=== PATIENT | female | born 1960 ===

== ENCOUNTER 2024-03-08 03:15 | Emergency (ER) | payer OTHER ==
--- OUTSIDE RECORDS SUMMARY | 2024-03-08 03:19 | XMS REPORT | Continuity of Care Document ---
Author Name Unknown Address [address] [facility] [address] [place] [address] [facility] thconnect Address [address] [facility] [address] [place] [address] Care Team Providers Care Show Host Name Role Phone Jani Chavira MD Primary Care Physician [phone] Joann Guevara Attending Clinician Unavailable Stoddard, Na L Attending Clinician Unavailable Stoddard, Na Ly Attending Clinician Unavailable Jani Chavira MD Attending Clinician [phone] ZAY LEARY Attending Clinician Unavailable MANDY CHAVEZ Attending Clinician Unavailable Zay Leary MD Attending Clinician [phone] Pc, [facility] Vascular Room 1 - Attending Clinician Un available Pc, Adc Echo Room 1 - Attending Clinician Unavai lable Pob, Adc Lab Main Attending Clinician Unavailabl e Doctor Unassigned, [place] Attending Clinician U JANI Trotter Attending Clinician Unavailable Rayo Varela MD Attending Clinician [phone] Lab, Adc Fam Pob I Attending Clinician Unavailab Rebekah England A Attending Clinician [phone] REBEKAH DOUGLASS Attending Clinician Unavailable Pob1, [facility] Attending Clinician UnaMariel Robertsone A Attending Clinician [phone] ANGELICA UNDERWOOD Attending Clinician Unavailable Vikki Page Attending Clinician [phone] VIKKI BOWENS Attending Clinician Unavailable Jasmin Stoddard Admitting Clinician Unavailable JANI CHAVIRA Admitting Clinician Unavailable Payers Payer Name Policy Type Policy Number Effective Date Expirati on Date Source AETNA CHOICE POS II [id number] 2018 00:00:00 AETNA 53 [id number] 2002 00:00:00 [facility] AETNA C1 [id number] 2021 00:00:00 [facility] Problems Condition Name Condition Details Condition Category Status Onset Date Resolution Date Last Treatment Date Treating Clinician Comments Source Back pain Back pain Disease Active 2014-10 00:00: 00 [facility] Cough Cough Disease Active 2014-10 00:00: 00 [facility] Epilepsy Epilepsy Disease Active 2014-10 00:00: 00 [facility] [id number] Seasonal allergies Problem [facility] [id number] Constipati on, unspecifie d constipati on type Problem [facility] [id number] Seizure disorder Problem [facility] [id number] Mild intermitte nt asthma without complicati on Problem [facility] Allergies, Adverse Reactions, Alerts Allergy Name Allergy Type Status Severity Reaction(s) Onset Date Inactive Date Treating Clinician Comments Source Meperidi ne Hcl Propensi ty to adverse reaction s Active Other - See comments 02-04 00:00: 00 Seizure like activity [facility] Morphine Propensi ty to adverse reaction s Active Other - See comments 02-04 00:00: 00 Seizure like activity [facility] MEPERIDI NE HCL DRUG INGREDI Active Other-Cmnt 02-04 00:00: 00 [facility] MORPHINE DRUG INGREDI Active Other-Cmnt 02-04 00:00: 00 [facility] Amoxicil luis alberto-Pot Clavulan ate Propensi ty to adverse reaction s Active Diarrhea 2016-10 00:00: 00 [facility] AMOXICIL LUIS ALBERTO-POT CLAVULAN ATE DRUG Active Diarrhea 2016-10 00:00: 00 [facility] Fluconaz ole Propensi ty to adverse reaction s Active Unknown - See comments 12-09 00:00: 00 [facility] FLUCONAZ OLE DRUG INGREDI Active Unknown-Cmnt 12-09 00:00: 00 [facility] amoxicil luis alberto / clavulan ate amoxicil luis alberto / clavulan ate Active Stomach [facility] morphine morphine Active Seizure Commo n [facility] fluconaz ole fluconaz ole Active Hives [facility] Social History Social Habit Start Date Stop Date Quantity Comments Source History SDOH Alcohol Frequency [facility] History SDOH [facility] History SDOH Alcohol Binge [facility] Use [facility] Sex Assigned At [facility] Exposure to SARS-CoV-2 (event) 2020-10-03 00:00:00 2020-11-02 13:57:00 Not sure [facility] Alcohol intake 2020-10-29 00:00:00 2020-10-29 00:00:00 Current drinker of alcohol (finding) [facility] History of Social function 2020-09-20 00:00:00 2020-09-20 00:00:00 [facility] Alcohol Comment 2015-08-15 00:00:00 2015-08-15 00:00:00 rarely [facility] Tobacco use and exposure 2015-08-15 00:00:00 2015-08-15 00:00:00 Smokeless tobacco non-user [facility] Smoking Status Start Date Stop Date Source Never Smoker [facility] Medications Ordered Medication Name Filled Medication Name Start Date Stop Date Current Medication? Ordering Clinician Indication Dosage Frequency Signature (SIG) Comments Components Source Azithromyci n 250 MG Azithromyci n 250 MG 4- 00:00: 00 No QD Azithromyc in 250 MG Azithromyci n 250 MG Azithromyci n 250 MG 2023-0 4- 00:00: 00 No QD Azithromyc in 250 MG Azithromyci n 250 MG Azithromyci n 250 MG 2023-0 4- 00:00: 00 No QD Azithromyc in 250 MG clonazePAM 0.5 MG clonazePAM 0.5 MG 2021-1 2-20 00:00: 00 No BID clonazePAM 0.5 MG clonazePAM 0.5 MG clonazePAM 0.5 MG 2021-1 2-20 00:00: 00 No BID clonazePAM 0.5 MG clonazePAM 0.5 MG clonazePAM 0.5 MG 2021-1 2-20 00:00: 00 No BID clonazePAM 0.5 MG clonazePAM 0.5 MG clonazePAM 0.5 MG 2-1 2-20 00:00: 00 No BID clonazePAM 0.5 MG clonazePAM 0.5 MG clonazePAM 0.5 MG 2-1 2-20 00:00: 00 No BID clonazePAM 0.5 MG clonazePAM 0.5 MG clonazePAM 0.5 MG 2-1 2-20 00:00: 00 No BID clonazePAM 0.5 MG clonazePAM 0.5 MG clonazePAM 0.5 MG 2-1 0-18 00:00: 00 No 1{table t_at_be dtime} BID clonazePAM 0.5 MG clonazePAM 0.5 MG clonazePAM 0.5 MG 2-1 0-18 00:00: 00 No 1{table t_at_be dtime} BID clonazePAM 0.5 MG Azelastine HCl 137 MCG/SPRAY Azelastine HCl 137 MCG/SPRAY 2022-0 06-12 00:00: 00 No 2{spray s_in_ea ch_nost ril} QD Azelastine HCl 137 MCG/SPRAY Azelastine HCl 137 MCG/SPRAY Azelastine HCl 137 MCG/SPRAY 2022-0 9-08 00:00: 00 No 2{spray s_in_ea ch_nost ril} QD Azelastine HCl 137 MCG/SPRAY Azelastine HCl 137 MCG/SPRAY Azelastine HCl 137 MCG/SPRAY 2022-0 06-12 00:00: 00 No 2{spray s_in_ea ch_nost ril} QD Azelastine HCl 137 MCG/SPRAY Azelastine HCl 137 MCG/SPRAY Azelastine HCl 137 MCG/SPRAY 2-0 06-12 00:00: 00 No 2{spray s_in_ea ch_nost ril} QD Azelastine HCl 137 MCG/SPRAY Azelastine HCl 137 MCG/SPRAY Azelastine HCl 137 MCG/SPRAY 2-0 06-12 00:00: 00 No 2{spray s_in_ea ch_nost ril} QD Azelastine HCl 137 MCG/SPRAY Azelastine HCl 137 MCG/SPRAY Azelastine HCl 137 MCG/SPRAY 2-0 06-12 00:00: 00 No 2{spray s_in_ea ch_nost ril} QD Azelastine HCl 137 MCG/SPRAY Azelastine HCl 137 MCG/SPRAY Azelastine HCl 137 MCG/SPRAY 2-0 06-12 00:00: 00 No 2{spray s_in_ea ch_nost ril} QD Azelastine HCl 137 MCG/SPRAY Azelastine HCl 137 MCG/SPRAY Azelastine HCl 137 MCG/SPRAY 2-0 06-12 00:00: 00 No 2{spray s_in_ea ch_nost ril} QD Azelastine HCl 137 MCG/SPRAY Azelastine HCl 137 MCG/SPRAY Azelastine HCl 137 MCG/SPRAY 2-0 06-12 00:00: 00 No 2{spray s_in_ea ch_nost ril} QD Azelastine HCl 137 MCG/SPRAY Azelastine HCl 137 MCG/SPRAY Azelastine HCl 137 MCG/SPRAY 2-0 06-12 00:00: 00 No 2{spray s_in_ea ch_nost ril} QD Azelastine HCl 137 MCG/SPRAY Azelastine HCl 137 MCG/SPRAY Azelastine HCl 137 MCG/SPRAY 2-0 06-12 00:00: 00 No 2{spray s_in_ea ch_nost ril} QD Azelastine HCl 137 MCG/SPRAY Benzonatate 200 MG Benzonatate 200 MG 2-0 06-12 00:00: 00 06-22 00:00 :00 No 1{capsu le} TID Benzonatat e 200 MG guaiFENesin -Codeine 100-10 MG/5ML guaiFENesin -Codeine 100-10 MG/5ML 2021-0 06-12 00:00: 00 06-19 00:00 :00 No QID guaiFENesi n-Codeine 100-10 MG/5ML methylPREDN ISolone 4 MG methylPREDN ISolone 4 MG 2021-0 06-11 00:00: 00 06-17 00:00 :00 No QD methylPRED NISolone 4 MG dilTIAZem HCl 60 MG dilTIAZem HCl 60 MG 2021-0 04-28 00:00: 00 No QD dilTIAZem HCl 60 MG dilTIAZem HCl 60 MG dilTIAZem HCl 60 MG 2021-0 04-28 00:00: 00 No QD dilTIAZem HCl 60 MG clonazePAM 0.5 MG clonazePAM 0.5 MG 2021-0 04-23 00:00: 00 No 1{table t_at_be dtime} BID clonazePAM 0.5 MG clonazePAM 0.5 MG clonazePAM 0.5 MG 2-0 04-23 00:00: 00 No 1{table t_at_be dtime} BID clonazePAM 0.5 MG clonazePAM 0.5 MG clonazePAM 0.5 MG 2021-0 04-23 00:00: 00 No 1{table t_at_be dtime} BID clonazePAM 0.5 MG clonazePAM 0.5 MG clonazePAM 0.5 MG 2-0 03-05 00:00: 00 No clonazePAM 0.5 MG clonazePAM 0.5 MG clonazePAM 0.5 MG 2-0 03-05 00:00: 00 No clonazePAM 0.5 MG clonazePAM 0.5 MG clonazePAM 0.5 MG 2-0 03-05 00:00: 00 No clonazePAM 0.5 MG clonazePAM 0.5 MG clonazePAM 0.5 MG 2-0 6 00:00: 00 No clonazePAM 0.5 MG clonazePAM 0.5 MG clonazePAM 0.5 MG 2-0 03-05 00:00: 00 No clonazePAM 0.5 MG Lactulose 10 GM/15ML Lactulose 10 GM/15ML 2022-0 3-04 00:00: 00 - 00:00 :00 No 15{ml} Lactulose 10 GM/15ML Amitiza 8 MCG Amitiza 8 MCG 2022-0 3- 00:00: 00 03-04 00:00 :00 No BID Amitiza 8 MCG Amitiza 8 MCG Amitiza 8 MCG 2022-0 3- 00:00: 00 03-04 00:00 :00 No BID Amitiza 8 MCG Fish Oil 500 MG Fish Oil 500 MG 2022-0 1-03 00:00: 00 No 1{capsu le} BID Fish Oil 500 MG Fish Oil 500 MG Fish Oil 500 MG 2022-0 1-03 00:00: 00 No 1{capsu le} BID Fish Oil 500 MG Fish Oil 500 MG Fish Oil 500 MG 2022-0 1-03 00:00: 00 No 1{capsu le} BID Fish Oil 500 MG Fish Oil 500 MG Fish Oil 500 MG 2022-0 1-03 00:00: 00 No 1{capsu le} BID Fish Oil 500 MG Fish Oil 500 MG Fish Oil 500 MG 2022-0 1-03 00:00: 00 No 1{capsu le} BID Fish Oil 500 MG Fish Oil 500 MG Fish Oil 500 MG 2022-0 1-03 00:00: 00 No 1{capsu le} BID Fish Oil 500 MG Fish Oil 500 MG Fish Oil 500 MG 2022-0 1-03 00:00: 00 No 1{capsu le} BID Fish Oil 500 MG Fish Oil 500 MG Fish Oil 500 MG 2022-0 1-03 00:00: 00 No 1{capsu le} BID Fish Oil 500 MG Fish Oil 500 MG Fish Oil 500 MG 2022-0 1-03 00:00: 00 No 1{capsu le} BID Fish Oil 500 MG Fish Oil 500 MG Fish Oil 500 MG 2022-0 1-03 00:00: 00 No 1{capsu le} BID Fish Oil 500 MG Fish Oil 500 MG Fish Oil 500 MG 2022-0 1-03 00:00: 00 No 1{capsu le} BID Fish Oil 500 MG Fish Oil 500 MG Fish Oil 500 MG 2022-0 1-03 00:00: 00 No 1{capsu le} BID Fish Oil 500 MG Fish Oil 500 MG Fish Oil 500 MG 2021-0 1- 00:00: 00 No 1{capsu le} BID Fish Oil 500 MG Fish Oil 500 MG Fish Oil 500 MG 2021-0 1- 00:00: 00 No 1{capsu le} BID Fish Oil 500 MG Fish Oil 500 MG Fish Oil 500 MG 2021-0 1- 00:00: 00 No 1{capsu le} BID Fish Oil 500 MG Fish Oil 500 MG Fish Oil 500 MG 2021-0 1- 00:00: 00 No 1{capsu le} BID Fish Oil 500 MG Linzess 72 MCG Linzess 72 MCG 2020-10 00:00: 00 02-01 00:00 :00 No 1{capsu le_on_a n_empty _stomac h} QD Linzess 72 MCG Linzess 72 MCG Linzess 72 MCG 2020-10 00:00: 00 02-01 00:00 :00 No 1{capsu le_on_a n_empty _stomac h} QD Linzess 72 MCG clonazePAM 0.5 mg tablet 2019-10 00:00: 00 01-07 00:00 :00 No [id number] .5mg Take 1 tablet by mouth 2 (two) times daily. [facility] clonazePAM 0.5 MG clonazePAM 0.5 MG No 1{table t} BID clonazePAM 0.5 MG clonazePAM 0.5 MG clonazePAM 0.5 MG No 1{table t} BID clonazePAM 0.5 MG Cranberry Cranberry No Cranberry clonazePAM 0.5 MG clonazePAM 0.5 MG No 1{table t} BID clonazePAM 0.5 MG Cranberry Cranberry No Cranberry Linzess 72 MCG Linzess 72 MCG No 1{capsu le_on_a n_empty _stomac h} QD Linzess 72 MCG Fiber Fiber No Fiber Linzess 72 MCG Linzess 72 MCG No 1{capsu le_on_a n_empty _stomac h} QD Linzess 72 MCG Lactulose 10 GM/15ML Lactulose 10 GM/15ML No Lactulose 10 GM/15ML dilTIAZem HCl 60 MG dilTIAZem HCl 60 MG No dilTIAZem HCl 60 MG Lactulose 10 GM/15ML Lactulose 10 GM/15ML No Lactulose 10 GM/15ML Fiber Fiber No Fiber Linzess 72 MCG Linzess 72 MCG No 1{capsu le_on_a n_empty _stomac h} QD Linzess 72 MCG dilTIAZem HCl 60 MG dilTIAZem HCl 60 MG No dilTIAZem HCl 60 MG Lactulose 10 GM/15ML Lactulose 10 GM/15ML No Lactulose 10 GM/15ML Fiber Fiber No Fiber Linzess 72 MCG Linzess 72 MCG No 1{capsu le_on_a n_empty _stomac h} QD Linzess 72 MCG Cranberry Cranberry No Cranberry dilTIAZem HCl 60 MG dilTIAZem HCl 60 MG No dilTIAZem HCl 60 MG Lactulose 10 GM/15ML Lactulose 10 GM/15ML No Lactulose 10 GM/15ML Linzess 72 MCG Linzess 72 MCG No 1{capsu le_on_a n_empty _stomac h} QD Linzess 72 MCG Cranberry Cranberry No Cranberry dilTIAZem HCl 60 MG dilTIAZem HCl 60 MG No dilTIAZem HCl 60 MG Lactulose 10 GM/15ML Lactulose 10 GM/15ML No Lactulose 10 GM/15ML Linzess 72 MCG Linzess 72 MCG No 1{capsu le_on_a n_empty _stomac h} QD Linzess 72 MCG Cranberry Cranberry No Cranberry dilTIAZem HCl 60 MG dilTIAZem HCl 60 MG No dilTIAZem HCl 60 MG Lactulose 10 GM/15ML Lactulose 10 GM/15ML No Lactulose 10 GM/15ML Linzess 72 MCG Linzess 72 MCG No 1{capsu le_on_a n_empty _stomac h} QD Linzess 72 MCG Lactulose 10 GM/15ML Lactulose 10 GM/15ML No Lactulose 10 GM/15ML Fiber Fiber No Fiber Benzonatate 200 MG Benzonatate 200 MG No 1{capsu le_as_n eeded} Benzonatat e 200 MG Linzess 72 MCG Linzess 72 MCG No 1{capsu le_on_a n_empty _stomac h} QD Linzess 72 MCG dilTIAZem HCl 60 MG dilTIAZem HCl 60 MG No dilTIAZem HCl 60 MG Lactulose 10 GM/15ML Lactulose 10 GM/15ML No Lactulose 10 GM/15ML Fiber Fiber No Fiber Benzonatate 200 MG Benzonatate 200 MG No 1{capsu le_as_n eeded} Benzonatat e 200 MG Linzess 72 MCG Linzess 72 MCG No 1{capsu le_on_a n_empty _stomac h} QD Linzess 72 MCG dilTIAZem HCl 60 MG dilTIAZem HCl 60 MG No dilTIAZem HCl 60 MG Lactulose 10 GM/15ML Lactulose 10 GM/15ML No Lactulose 10 GM/15ML Fiber Fiber No Fiber Benzonatate 200 MG Benzonatate 200 MG No 1{capsu le_as_n eeded} Benzonatat e 200 MG Linzess 72 MCG Linzess 72 MCG No 1{capsu le_on_a n_empty _stomac h} QD Linzess 72 MCG dilTIAZem HCl 60 MG dilTIAZem HCl 60 MG No dilTIAZem HCl 60 MG Vitamin C Vitamin C No Vitamin C Lactulose 10 GM/15ML Lactulose 10 GM/15ML No Lactulose 10 GM/15ML Linzess 72 MCG Linzess 72 MCG No 1{capsu le_on_a n_empty _stomac h} QD Linzess 72 MCG dilTIAZem HCl 60 MG dilTIAZem HCl 60 MG No dilTIAZem HCl 60 MG Vitamin C Vitamin C No Vitamin C Lactulose 10 GM/15ML Lactulose 10 GM/15ML No Lactulose 10 GM/15ML Linzess 72 MCG Linzess 72 MCG No 1{capsu le_on_a n_empty _stomac h} QD Linzess 72 MCG dilTIAZem HCl 60 MG dilTIAZem HCl 60 MG No dilTIAZem HCl 60 MG Immunizations Ordered Immunization Name Filled Immunization Name Date Status Comments Source Moderna COVID-19 Vaccine (Low Dose Booster) Moderna COVID-19 Vaccine (Low Dose Booster) 2022-02-12 15:14:00 Completed [facility] Moderna COVID-19 Vaccine (Low Dose Booster) Moderna COVID-19 Vaccine (Low Dose Booster) 2022-02-12 15:14:00 Completed [facility] Moderna COVID-19 Vaccine (Low Dose Booster) Moderna COVID-19 Vaccine (Low Dose Booster) 2022-02-12 15:14:00 Completed [facility] Moderna COVID-19 Vaccine (Low Dose Booster) Moderna COVID-19 Vaccine (Low Dose Booster) 2022-02-12 15:14:00 Completed [facility] Moderna COVID-19 Vaccine (Low Dose Booster) Moderna COVID-19 Vaccine (Low Dose Booster) 2022-02-12 15:14:00 Completed [facility] Moderna COVID-19 Vaccine (Low Dose Booster) Moderna COVID-19 Vaccine (Low Dose Booster) 2022-02-12 15:14:00 Completed [facility] Moderna COVID-19 Vaccine (Low Dose Booster) Moderna COVID-19 Vaccine (Low Dose Booster) 2022-02-12 15:14:00 Completed [facility] Moderna COVID-19 Vaccine (Low Dose Booster) Moderna COVID-19 Vaccine (Low Dose Booster) 2022-02-12 15:14:00 Completed [facility] Moderna COVID-19 Vaccine (Low Dose Booster) Moderna COVID-19 Vaccine (Low Dose Booster) 2022-02-12 15:14:00 Completed [facility] Moderna COVID-19 Vaccine (Low Dose Booster) Moderna COVID-19 Vaccine (Low Dose Booster) 2022-02-12 15:14:00 Completed [facility] Moderna COVID-19 Vaccine (Low Dose Booster) Moderna COVID-19 Vaccine (Low Dose Booster) 2022-02-12 15:14:00 Completed [facility] Moderna COVID-19 Vaccine (Low Dose Booster) Moderna COVID-19 Vaccine (Low Dose Booster) 2022-02-12 15:14:00 Completed [facility] Moderna COVID-19 Vaccine (Low Dose Booster) Moderna COVID-19 Vaccine (Low Dose Booster) 2022-02-12 15:14:00 Completed [facility] Moderna COVID-19 Vaccine (Low Dose Booster) Moderna COVID-19 Vaccine (Low Dose Booster) 2022-02-12 15:14:00 Completed [facility] Moderna COVID-19 Vaccine (Low Dose Booster) Moderna COVID-19 Vaccine (Low Dose Booster) 2022-02-12 15:14:00 Completed [facility] Moderna COVID-19 Vaccine (Low Dose Booster) Moderna COVID-19 Vaccine (Low Dose Booster) 2022-02-12 15:14:00 Completed [facility] Moderna COVID-19 Vaccine (Low Dose Booster) Moderna COVID-19 Vaccine (Low Dose Booster) 2022-02-12 15:14:00 Completed [facility] Moderna COVID-19 Vaccine (Low Dose Booster) Moderna COVID-19 Vaccine (Low Dose Booster) 2022-02-12 15:14:00 Completed [facility] Moderna COVID-19 Vaccine (Low Dose Booster) Moderna COVID-19 Vaccine (Low Dose Booster) 2022-02-12 15:14:00 Completed [facility] Moderna COVID-19 Vaccine (Low Dose Booster) Moderna COVID-19 Vaccine (Low Dose Booster) 2022-02-12 15:14:00 Completed [facility] Moderna COVID-19 Vaccine (Low Dose Booster) Moderna COVID-19 Vaccine (Low Dose Booster) 2021-08-09 16:35:00 Completed [facility] Moderna COVID-19 Vaccine (Low Dose Booster) Moderna COVID-19 Vaccine (Low Dose Booster) 2021-08-09 16:35:00 Completed [facility] Moderna COVID-19 Vaccine (Low Dose Booster) Moderna COVID-19 Vaccine (Low Dose Booster) 2021-08-09 16:35:00 Completed [facility] Moderna COVID-19 Vaccine (Low Dose Booster) Moderna COVID-19 Vaccine (Low Dose Booster) 2021-08-09 16:35:00 Completed [facility] Moderna COVID-19 Vaccine (Low Dose Booster) Moderna COVID-19 Vaccine (Low Dose Booster) 2021-08-09 16:35:00 Completed [facility] Moderna COVID-19 Vaccine (Low Dose Booster) Moderna COVID-19 Vaccine (Low Dose Booster) 2021-08-09 16:35:00 Completed [facility] Moderna COVID-19 Vaccine (Low Dose Booster) Moderna COVID-19 Vaccine (Low Dose Booster) 2021-08-09 16:35:00 Completed [facility] Moderna COVID-19 Vaccine (Low Dose Booster) Moderna COVID-19 Vaccine (Low Dose Booster) 2021-08-09 16:35:00 Completed [facility] Moderna COVID-19 Vaccine (Low Dose Booster) Moderna COVID-19 Vaccine (Low Dose Booster) 2021-08-09 16:35:00 Completed [facility] Moderna COVID-19 Vaccine (Low Dose Booster) Moderna COVID-19 Vaccine (Low Dose Booster) 2021-08-09 16:35:00 Completed [facility] Moderna COVID-19 Vaccine (Low Dose Booster) Moderna COVID-19 Vaccine (Low Dose Booster) 2021-08-09 16:35:00 Completed [facility] Moderna COVID-19 Vaccine (Low Dose Booster) Moderna COVID-19 Vaccine (Low Dose Booster) 2021-08-09 16:35:00 Completed [facility] Moderna COVID-19 Vaccine (Low Dose Booster) Moderna COVID-19 Vaccine (Low Dose Booster) 2021-08-09 16:35:00 Completed [facility] Moderna COVID-19 Vaccine (Low Dose Booster) Moderna COVID-19 Vaccine (Low Dose Booster) 2021-08-09 16:35:00 Completed [facility] Moderna COVID-19 Vaccine (Low Dose Booster) Moderna COVID-19 Vaccine (Low Dose Booster) 2021-08-09 16:35:00 Completed [facility] Moderna COVID-19 Vaccine (Low Dose Booster) Moderna COVID-19 Vaccine (Low Dose Booster) 2021-08-09 16:35:00 Completed [facility] Moderna COVID-19 Vaccine (Low Dose Booster) Moderna COVID-19 Vaccine (Low Dose Booster) 2021-08-09 16:35:00 Completed [facility] Moderna COVID-19 Vaccine (Low Dose Booster) Moderna COVID-19 Vaccine (Low Dose Booster) 2021-08-09 16:35:00 Completed [facility] Moderna COVID-19 Vaccine (Low Dose Booster) Moderna COVID-19 Vaccine (Low Dose Booster) 2021-08-09 16:35:00 Completed [facility] Moderna COVID-19 Vaccine (Low Dose Booster) Moderna COVID-19 Vaccine (Low Dose Booster) 2021-08-09 16:35:00 Completed [facility] Moderna COVID-19 Vaccine (Low Dose Booster) Moderna COVID-19 Vaccine (Low Dose Booster) 2021-08-09 16:35:00 Completed [facility] Moderna COVID-19 Vaccine (Low Dose Booster) Moderna COVID-19 Vaccine (Low Dose Booster) 2021-08-09 16:35:00 Completed [facility] Moderna COVID-19 Vaccine (Low Dose Booster) Moderna COVID-19 Vaccine (Low Dose Booster) 2021-08-09 16:35:00 Completed [facility] Moderna COVID-19 Vaccine (Low Dose Booster) Moderna COVID-19 Vaccine (Low Dose Booster) 2021-08-09 16:35:00 Completed [facility] Moderna COVID-19 Vaccine (Low Dose Booster) Moderna COVID-19 Vaccine (Low Dose Booster) 2021-08-09 16:35:00 Completed [facility] Moderna COVID-19 Vaccine (Low Dose Booster) Moderna COVID-19 Vaccine (Low Dose Booster) 2021-08-09 16:35:00 Completed [facility] Moderna COVID-19 Vaccine (Low Dose Booster) Moderna COVID-19 Vaccine (Low Dose Booster) 2021-08-09 16:35:00 Completed [facility] Moderna COVID-19 Vaccine (Low Dose Booster) Moderna COVID-19 Vaccine (Low Dose Booster) 2021-08-09 16:35:00 Completed [facility] Moderna COVID-19 Vaccine (Low Dose Booster) Moderna COVID-19 Vaccine (Low Dose Booster) 2021-08-09 16:35:00 Completed [facility] Moderna COVID-19 Vaccine (Low Dose Booster) Moderna COVID-19 Vaccine (Low Dose Booster) 2021-08-09 16:35:00 Completed [facility] Moderna COVID-19 Vaccine (Low Dose Booster) Moderna COVID-19 Vaccine (Low Dose Booster) 2021-08-09 16:35:00 Completed [facility] Moderna COVID-19 Vaccine (Low Dose Booster) Moderna COVID-19 Vaccine (Low Dose Booster) 2021-08-09 16:35:00 Completed [facility] Moderna COVID-19 Vaccine (Low Dose Booster) Moderna COVID-19 Vaccine (Low Dose Booster) 2021-08-09 16:35:00 Completed [facility] 16:23:00 Com[facility] 16:23:00 Completed [facility] 2021-08-05 16:23:00 Completed [facility] 2021-08-05 16:23:00 Completed [facility] 2021-08-05 16:23[facility] 16:23:00 Completed [facility] 2021-08-05 16:23:00 Completed [facility] 2021-08-05 16:23:00 Completed [facility] 2021-08-05 16:23:00 Completed [facility] 2021-08-05 16:23:00 Completed [facility] 2021-08-05 16:23:00 Completed [facility] 2021-08-05 16:23:00 Completed [facility] 2021-08-05 16:23:00 Completed [facility] 2021-08-05 16:23:00 Completed [facility] 2021-08-05 16:23:00 Completed [facility] 2021-08-05 16:23:00 Completed [facility] 2021-08-05 16:23:00 Completed [facility] 2021-08-05 16:23:00 Completed [facility] 2021-08-05 16:23:00 Completed [facility] 2021-08-05 16:23:00 Completed [facility] 2021-08-05 16:23:00 Completed [facility] 2021-08-05 16:23:00 Completed [facility] 2021-08-05 16:23:00 Completed [facility] 2021-08-05 16:23:00 Completed [facility] 2021-08-05 16:23:00 Completed [facility] 2021-08-05 16:23:00 Completed [facility] 2021-08-05 16:23:00 Completed [facility] Afluria Afluria 2021-08-05 16:23:00 Completed [facility] Afluria Afluria 2021-08-05 16:23:00 Completed [facility] Afluria Afluria 2021-08-05 16:23:00 Completed [facility] Afluria Afluria 2021-08-05 16:23:00 Completed [facility] Afluria Afluria 2021-08-05 16:23:00 Completed [facility] Afluria Afluria 2021-08-05 16:23:00 Completed [facility] Afluria Afluria 2021-08-05 16:23:00 Completed [facility] SARS-COV-2 COVID-19 MODERNA VACCINE 2020-12-04 00:00:00 Completed [facility] SARS-COV-2 COVID-19 MODERNA VACCINE 2020-12-04 00:00:00 Completed [facility] SARS-COV-2 COVID-19 MODERNA VACCINE 2020-11-06 00:00:00 Completed [facility] SARS-COV-2 COVID-19 MODERNA VACCINE 2020-11-06 00:00:00 Completed [facility] Influenza Virus Vaccine Quad IM Multi-dose 6+ MO 2020-07-23 00:00:00 Completed [facility] Influenza Virus Vaccine Quad IM Multi-dose 6+ MO 2020-07-23 00:00:00 Completed [facility] Influenza Virus Vaccine Quad IM Multi-dose 6+ MO Unknown Completed [facility] Influenza Virus Vaccine Quad IM Multi-dose 6+ MO Unknown Completed [facility] Moderna COVID-19 Vaccine (Low Dose Booster) Moderna COVID-19 Vaccine (Low Dose Booster) Unknown Completed [facility] Moderna COVID-19 Vaccine (Low Dose Booster) Moderna COVID-19 Vaccine (Low Dose Booster) Unknown Completed [facility] Afluria Afluria Unknown Completed [facility] Moderna COVID-19 Vaccine (Low Dose Booster) Moderna COVID-19 Vaccine (Low Dose Booster) Unknown Completed [facility] Moderna COVID-19 Vaccine (Low Dose Booster) Moderna COVID-19 Vaccine (Low Dose Booster) Unknown Completed [facility] Afluria Afluria Unknown Completed [facility] Vital Signs Vital Name Observation Time Observation Value Comments Beverly disla height 2023-01-08 11:30:00 65 [in_i] Commo n [facility] weight 2023-01-08 11:30:00 152.6 [lb_av] Co [facility] bmi 2023-01-08 11:30:00 25.39 kg/m2 Comm on [facility] height 2022-09-23 08:20:00 65 [in_i] Commo n [facility] weight 2022-09-23 08:20:00 152.6 [lb_av] Co [facility] temperature 2022-09-23 08:20:00 97.3 [degF] Com mon [facility] bmi 2022-09-23 08:20:00 25.39 kg/m2 Comm on [facility] oximetry 2022-09-23 08:20:00 99 % Commo n [facility] respiratory rate 2022-09-23 08:20:00 17 /min [facility] blood pressure systolic 2022-09-23 08:20:00 111 mm[Hg] [facility] blood pressure diastolic 2022-09-23 08:20:00 60 mm[Hg] [facility] height 2022-06-11 13:00:00 65 [in_i] Commo n [facility] weight 2022-06-11 13:00:00 152 [lb_av] Comm on [facility] bmi 2022-06-11 13:00:00 25.29 kg/m2 Comm on [facility] height 2022-04-23 11:20:00 65 [in_i] Commo n [facility] weight 2022-04-23 11:20:00 152 [lb_av] Comm on [facility] bmi 2022-04-23 11:20:00 25.29 kg/m2 Comm on [facility] height 2021-09-19 11:20:00 65 [in_i] Commo n [facility] weight 2021-09-19 11:20:00 157 [lb_av] Comm on [facility] temperature 2021-09-19 11:20:00 97.3 [degF] Com mon [facility] bmi 2021-09-19 11:20:00 26.12 kg/m2 Comm on [facility] oximetry 2021-09-19 11:20:00 97 % Commo n [facility] blood pressure systolic 2021-09-19 11:20:00 117 mm[Hg] [facility] blood pressure diastolic 2021-09-19 11:20:00 64 mm[Hg] [facility] height 2021-08-05 14:00:00 65 [in_i] Commo n [facility] weight 2021-08-05 14:00:00 155.4 [lb_av] Co mmon [facility] temperature 2021-08-05 14:00:00 97.8 [degF] Com mon [facility] bmi 2021-08-05 14:00:00 25.86 kg/m2 Comm on [facility] oximetry 2021-08-05 14:00:00 98 % Commo n [facility] respiratory rate 2021-08-05 14:00:00 16 /min [facility] blood pressure systolic 2021-08-05 14:00:00 111 mm[Hg] [facility] blood pressure diastolic 2021-08-05 14:00:00 59 mm[Hg] [facility] Encounters Start Date/Time End Date/Time Encounter Type Admission Type Attending [facility] Care Facility Care Department Encounter ID Source 2023-01-08 11:35:00 [facility] [id number] [facility] 2022-10-10 13:59:02 Outpatient Joann Guevara STLMLC STLMLC [id number] [facility] 2022-09-19 08:47:02 Outpatient Stoddard, Na STLMLC STLMLC [id number] [facility] 2022-09-18 14:07:03 Outpatient Stoddard, Na STLMLC STLMLC [id number] [facility] 2022-09-17 09:19:02 Outpatient Stoddadr, Na STLMLC STLMLC [id number] [facility] 2022-08-19 14:18:01 Outpatient Stoddard, Na STLMLC STLMLC [id number] [facility] 2022-07-07 08:25:02 Outpatient Stoddard, Na STLMLC STLMLC [id number] [facility] 2022-06-11 10:57:02 Outpatient Stoddard, Na STLMLC STLMLC [id number] [facility] 2022-04-29 12:19:01 Outpatient Stoddard, Na STLMLC STLMLC [id number] [facility] 2022-04-21 08:59:02 Outpatient Stoddard, Na STLMLC STLMLC [id number] [facility] 2022-02-18 08:12:03 Outpatient Stoddard, Na STLMLC STLMLC [id number] [facility] 2022-02-14 15:18:00 Outpatient Stoddard, Na STLMLC STLMLC [id number] [facility] 2022-01-22 08:51:03 Outpatient Stoddard, Na STLMLC STLMLC [id number] [facility] 2021-10-30 14:37:01 Outpatient Jasmin Stoddard STBIRGITLC STLMLC [id number] [facility] 2021-10-30 14:25:49 Outpatient Jasmin Stoddard STLMLC STLMLC [id number] [facility] 2021-10-30 14:24:22 Outpatient Jasmin Stoddard STLMLC STLMLC [id number] [facility] 2021-10-30 14:10:31 Outpatient Jasmin Stoddard STBIRGITLC STLMLC [id number] [facility] 2021-10-30 14:07:16 Outpatient Jasmin Stoddard STLMLC STLMLC [id number] [facility] 2021-08-03 17:41:35 Emergency [facility] [id number] [facility] 2023-01-08 00:00:00 2023-01-08 00:00:00 OFFICE VISIT ESTAB PT LEVEL 3 STLMLC STLMLC [id number] [facility] 2023-01-08 00:00:00 2023-01-08 00:00:00 (TEL) STLMLC STLMLC [id number] [facility] 2022-10-01 00:00:00 2022-10-01 00:00:00 (TEL) STLMLC STLMLC [id number] [facility] 2022-09-23 00:00:00 2022-09-23 00:00:00 PREV VISIT EST AGE 40-64 STLMLC STLMLC [id number] [facility] 2022-09-22 00:00:00 2022-09-22 00:00:00 (TEL) STLMLC STLMLC [id number] [facility] 2022-09-11 12:00:00 2022-09-11 12:00:00 Outpatient RAMON FountainJasmin rogers HCAPM VANESSA [id number] [facility] [place] 2022-08-19 00:00:00 2022-08-19 00:00:00 (TEL) STLMLC STLMLC [id number] [facility] 2022-07-22 00:00:00 2022-07-22 00:00:00 (TEL) STLMLC STLMLC [id number] [facility] 2022-06-12 00:00:00 2022-06-12 00:00:00 (TEL) STLMLC STLMLC [id number] [facility] 2022-06-12 00:00:00 2022-06-12 00:00:00 (TEL) STLMLC STLMLC [id number] [facility] 2022-06-12 00:00:00 2022-06-12 00:00:00 (TEL) STLMLC STLMLC [id number] [facility] 2022-06-11 00:00:00 2022-06-11 00:00:00 (TEL) STLMLC STLMLC [id number] [facility] 2022-06-11 00:00:00 2022-06-11 00:00:00 OFFICE VISIT EST PT LEVEL 3 STLMLC STLMLC [id number] [facility] 2022-04-25 00:00:00 2022-04-25 00:00:00 (TEL) STLMLC STLMLC [id number] [facility] 2022-04-23 00:00:00 2022-04-23 00:00:00 (TEL) STLMLC STLMLC [id number] [facility] 2022-04-23 00:00:00 2022-04-23 00:00:00 OFFICE VISIT EST PT LEVEL 3 STLMLC STLMLC [id number] [facility] 2022-03-05 00:00:00 2022-03-05 00:00:00 (TEL) STLMLC STLMLC [id number] [facility] 2022-02-17 00:00:00 2022-02-17 00:00:00 (TEL) STLMLC STLMLC [id number] [facility] 2022-02-12 00:00:00 2022-02-12 00:00:00 (TEL) STLMLC STLMLC [id number] [facility] 2022-02-12 00:00:00 2022-02-12 00:00:00 (COVID Inj) COVID Injection STLMLC STLMLC [id number] [facility] 2022-01-22 00:00:00 2022-01-22 00:00:00 OFFICE VISIT ESTAB PT LEVEL 3 STLMLC STLMLC [id number] [facility] 2022-01-21 00:00:00 2022-01-21 00:00:00 (TEL) STLMLC STLMLC [id number] [facility] 2021-12-06 00:00:00 2021-12-06 00:00:00 (TEL) STLMLC STLMLC [id number] [facility] 2021-12-04 00:00:00 2021-12-04 00:00:00 (TEL) STLMLC STLMLC [id number] [facility] 2021-12-04 00:00:00 2021-12-04 00:00:00 (TEL) STLMLC STLMLC [id number] [facility] 2021-12-04 00:00:00 2021-12-04 00:00:00 (TEL) STLMLC STLMLC [id number] [facility] 2021-10-17 00:00:00 2021-10-17 00:00:00 (TEL) STLMLC STLMLC [id number] [facility] 2021-10-07 00:00:00 2021-10-07 00:00:00 (TEL) STLMLC STLMLC [id number] [facility] 2021-09-19 00:00:00 2021-09-19 00:00:00 PREV VISIT EST AGE 40-64 STLMLC STLMLC [id number] [facility] 2021-09-05 00:00:00 2021-09-05 00:00:00 (TEL) STLMLC STLMLC [id number] [facility] 2021-09-04 00:00:00 2021-09-04 00:00:00 (TEL) STLMLC STLMLC [id number] [facility] 2021-08-28 00:00:00 2021-08-28 00:00:00 (TEL) STLMLC STLMLC [id number] [facility] 2021-08-09 00:00:00 2021-08-09 00:00:00 (COVID Inj) COVID Injection STLMLC STLMLC [id number] [facility] 2021-08-06 00:00:00 2021-08-06 00:00:00 (TEL) STLMLC STLMLC [id number] [facility] 2021-08-05 00:00:00 2021-08-05 00:00:00 OFFICE VISIT NEW PT LEVEL 4 STLMLC STLMLC [id number] [facility] 2021-07-03 00:00:00 2021-07-03 00:00:[facility] 1.84.114 350.1.13.10 4.2.7.2.686 [id number] [facility] 2021-06-26 00:00:00 2021-06-26 00:00:00 Telephone Franklin [facility] 1.840.114 350.1.13.10 4.2.7.2.686 [id number] [id number] [facility] 2021-05-23 00:00:00 2021-05-23 00:00:00 Telephone Franklin [facility] Office Building One 1.84.114 350.1.13.10 4.2.7.2.686 [id number] [facility] 2021-05-07 00:00:00 2021-05-07 00:00:00 Refill Franklin [facility] Office Building One 1.2840.114 350.1.13.10 4.2.7.2.686 [id number] [facility] 2021-04-28 00:00:00 2021-04-28 00:00:00 Refill Franklin [facility] Office Building One 1.2840.114 350.1.13.10 4.2.7.2.686 [id number] [facility] 2021-03-05 00:00:00 2021-03-05 00:00:00 [facility] 1.2840.114 350.1.13.10 4.2.7.2.686 [id number] 044 [id number] [facility] 2021-03-01 00:00:00 2021-03-01 00:00:00 Telephone Franklin Jani [facility] Office Building One 1.2840.114 350.1.13.10 4.2.7.2.686 [id number] [id number] [facility] 2021-02-27 00:00:00 2021-02-27 00:00:00 Telephone Franklin [facility] Office Building One 1.2840.114 350.1.13.10 4.2.7.2.686 [id number] [id number] [facility] 2021-01-28 13:20:00 2021-01-28 13:20:00 Outpatient ZAY LAMB [facility] [id number] [facility] 2021-01-06 00:00:00 2021-01-06 00:00:00 Refill Franklin [facility] Office Building One 1.2.840.114 350.1.13.10 4.2.7.2.686 [id number] [facility] 2020-12-04 14:10:00 2020-12-04 14:10:00 Outpatient MANDY PEREZ [facility] [id number] [facility] 2020-11-06 14:10:00 2020-11-06 14:10:00 Outpatient Ruel CHAVEZ [facility] [id number] [facility] 2020-11-05 00:00:00 2020-11-05 00:00:00 Telephone Ricardo [facility] Building 1.2.840.114 350.1.13.10 4.2.7.2.686 [id number] [id number] [facility] 2020-11-05 00:00:00 2020-11-05 00:00:00 Patient Secure Msg Ricardo [facility] BUILDING 1.2.840.114 350.1.13.10 4.2.7.2.686 [id number] [facility] 2020-11-02 13:57:50 2020-11-02 15:14:55 Slab Worker Visit Pc, Adc Vascular Room 1 - Ricardo [facility] Building 1.2.840.114 350.1.13.10 4.2.7.2.686 [id number] [facility] 2020-11-02 13:57:35 2020-11-02 14:57:35 Laboratory Only Pc, Adc Echo Room 1 - Ricardo [facility] Building 1.2.840.114 350.1.13.10 4.2.7.2.686 [id number] [facility] 2020-11-02 14:00:00 2020-11-02 14:00:00 Outpatient R [facility] [id number] [facility] 2020-10-31 00:00:00 2020-10-31 00:00:00 Telephone Jani Chavira [facility] Office Building One 1.2.840.114 350.1.13.10 4.2.7.2.686 [id number] [id number] [facility] 2020-10-30 00:00:00 2020-10-30 00:00:00 Patient Secure Msg Ricardo [facility] BUILDING 1.2.840.114 350.1.13.10 4.2.7.2.686 [id number] [facility] 2020-10-29 14:08:27 2020-10-29 14:23:27 Slab Worker Visit Pob, Adc Lab Main Ricardo [facility] Building 1.2.840.114 350.1.13.10 4.2.7.2.686 [id number] [facility] 2020-10-29 12:47:07 2020-10-29 13:46:37 [facility] 1.2.840.114 350.1.13.10 4.2.7.2.686 [id number] [facility] 2020-10-29 13:00:00 2020-10-29 13:00:00 [facility] [id number] 2020-10-29 00:00:00 2020-10-29 00:00:00 Orders Only Doctor Unassigned, [place] [facility] 1.2.840.114 350.1.13.10 4.2.7.2.686 [id number] [id number] [facility] 2020-10-24 07:01:54 2020-10-24 07:34:55 Office Visit Jani Chavira [facility] Office Building One 1.2840.114 350.1.13.10 4.2.7.2.686 [id number] [facility] 2020-10-24 07:15:00 2020-10-24 07:15:00 Outpatient R JANI CHAVIRA [facility] [id number] [facility] 2020-10-22 00:00:00 2020-10-22 00:00:00 Telephone Jani Chavira [facility] Building 1.2840.114 350.1.13.10 4.2.7.2.686 [id number] [id number] [facility] 2020-10-19 22:34:00 2020-10-20 01:20:00 Emergency NicholeRayo williamson [facility] 1.2840.114 350.1.13.10 4.2.7.2.686 [id number] [facility] 2020-10-15 00:00:00 2020-10-15 00:00:00 Telephone Jani Chavira [facility] Office Building One 1.2840.114 350.1.13.10 4.2.7.2.686 [id number] 044 [id number] [facility] 2020-09-25 12:50:33 2020-09-25 23:59:00 Hospital Encounter Jani Chavira [facility] 1.2840.114 350.1.13.10 4.2.7.2.686 [id number] [facility] 2020-09-25 00:00:00 2020-09-25 00:00:00 Outpatient R JANI CHAVIRA [facility] [id number] [facility] 2020-09-21 00:00:00 2020-09-21 00:00:00 Patient Secure Msg [place] [facility] Office Building One 1.2.840.114 350.1.13.10 4.2.7.2.686 [id number] [facility] 2020-09-21 00:00:00 2020-09-21 00:00:00 Telephone Jani Chavira [facility] Office Building One 1.2.840.114 350.1.13.10 4.2.7.2.686 [id number] [facility] 2020-09-20 08:21:18 2020-09-20 08:57:28 Office Visit Jani Chavira [facility] Office Building One 1.2.840.114 350.1.13.10 4.2.7.2.686 [id number] 044 [id number] [facility] 2020-09-20 08:22:04 2020-09-20 08:42:04 Slab Worker Visit Lab, Adc Fam Pob I [place] [facility] Office Building One 1.2840.114 350.1.13.10 4.2.7.2.686 [id number] [facility] 2020-09-20 08:30:00 2020-09-20 08:30:00 Outpatient R JANI CHAVIRA [facility] [id number] [facility] 2020-09-07 00:00:00 2020-09-07 00:00:00 Refill Jani Chavira [facility] Office Building One 1.2840.114 350.1.13.10 4.2.7.2.686 [id number] [facility] 2020-08-09 14:18:40 2020-08-09 23:59:00 Hospital Encounter Rebekah Douglass [facility] 1.2.840.114 350.1.13.10 4.2.7.2.686 [id number] [facility] 2020-08-09 15:00:00 2020-08-09 15:00:00 Outpatient R REBEKAH DOUGLASS [facility] [id number] [facility] 2020-08-09 00:00:00 2020-08-09 00:00:00 Orders Only Doctor Unassigned, [place] [facility] 1..114 350.1.13.10 4.2.7.2.686 [id number] [facility] 2020-08-06 00:00:00 2020-08-06 00:00:00 Outpatient R REBEKAH DOUGLASS [facility] [id number] [facility] 2020-08-02 00:00:00 2020-08-02 00:00:00 Case Management Rebekah Douglass [facility] Building 1..114 350.1.13.10 4.2.7.2.686 [id number] [facility] 2020-08-01 00:00:00 2020-08-01 00:00:00 Telephone Rebekah Douglass [facility] Building 1..114 350.1.13.10 4.2.7.2.686 [id number] [facility] 2020-07-23 11:40:00 2020-07-23 11:40:00 Outpatient R [facility] [id number] [facility] 2020-06-18 00:00:00 2020-06-18 00:00:00 Telephone Franklin [facility] Office Building One 1..114 350.1.13.10 4.2.7.2.686 [id number] 044 [id number] [facility] 2020-05-08 00:00:00 2020-05-08 00:00:00 Refill Franklin [facility] Office Building One 1..114 350.1.13.10 4.2.7.2.686 [id number] [id number] [facility] 2020-03-19 12:45:00 2020-03-19 12:45:00 Outpatient R JANI CHAVIRA [facility] [id number] [facility] 2020-03-12 00:00:00 2020-03-12 00:00:00 Telephone Jani Chavira [facility] 1.114 350.1.13.10 4.2.7.2.686 [id number] [facility] 2020-03-12 00:00:00 2020-03-12 00:00:00 Patient Secure Msg Doctor Unassigned, [place] [facility] 1.114 350.1.13.10 4.2.7.2.686 [id number] [id number] [facility] 2020-03-08 15:01:31 2020-03-08 16:28:53 Urgent Care Pob1, Acute Care Clinic Angelica Underwood [facility] Office Building One 1.114 350.1.13.10 4.2.7.2.686 [id number] [facility] 2020-03-08 15:00:00 2020-03-08 15:00:00 Outpatient R [facility] [id number] [facility] 2020-03-08 13:20:00 2020-03-08 13:20:00 Outpatient R ANGELICA UNDERWOOD [facility] [id number] [facility] 2020-03-08 00:00:00 2020-03-08 00:00:00 Refill Franklin Jani [facility] Office Building One .114 350.1.13.10 4.2.7.2.686 [id number] [facility] 2020-02-15 09:21:01 2020-02-15 10:39:45 Telemedici ne Visit Rebekah Douglass [facility] Building 1.114 350.1.13.10 4.2.7.2.686 [id number] [facility] 2020-02-15 09:30:00 2020-02-15 09:30:00 Outpatient REBEKAH MCCARTHY [facility] [id number] [facility] 2020-02-09 09:30:00 2020-02-09 09:30:00 Outpatient R JANI CHAVIRA [facility] [id number] [facility] 2020-02-09 07:11:40 2020-02-09 07:26:40 Telemedici ne Visit Jani Chavira [facility] [place] Vianca [facility] Building 1.2.840.114 350.1.13.10 4.2.7.2.686 [id number] [facility] 2020-01-18 00:00:00 2020-01-18 00:00:00 Refill Jani Chavira [facility] Building 1.284.114 350.1.13.10 4.2.7.2.686 [id number] [facility] 2020-01-17 07:45:00 2020-01-17 07:45:00 Outpatient JANI RICH [facility] [id number] [facility] 2020-01-17 07:02:18 2020-01-17 07:17:18 Telemedici ne Visit Jan[facility] 1.284.114 350.1.13.10 4.2.7.2.686 [id number] [facility] 2020-01-03 07:03:22 2020-01-03 07:18:22 Telemedici ne Visit Jani Chavira [facility] Building 1.284.114 350.1.13.10 4.2.7.2.686 [id number] [facility] 2020-01-03 07:15:00 2020-01-03 07:15:00 Outpatient R JANI CHAVIRA [facility] [id number] [facility] 2019-12-20 09:41:50 2019-12-20 10:14:04 Office Visit Vikki Bowens [facility] Office Building One 1.114 350.1.13.10 4.2.7.2.686 [id number] [facility] 2019-12-20 09:40:00 2019-12-20 09:40:00 Outpatient R VIKKI BOWENS [facility] [id number] [facility] 2019-11-14 00:00:00 2019-11-14 00:00:00 Reflayne Chavira Jani [facility] Office Building One 1.114 350.1.13.10 4.2.7.2.686 [id number] 044 [id number] [facility] 2019-11-14 00:00:00 2019-11-14 00:00:00 Refill Franklin Jani [facility] 1.114 350.1.13.10 4.2.7.2.686 [id number] [facility] 2019-11-01 00:00:00 2019-11-01 00:00:00 Telephone Jani Chavira [facility] 1.114 350.1.13.10 4.2.7.2.686 [id number] [facility] 2019-10-27 13:43:50 2019-10-27 14:23:42 Office Visit Angelica Underwood [facility] 1.114 350.1.13.10 4.2.7.2.686 [id number] 044 [id number] [facility] 2019-10-25 00:00:00 2019-10-25 00:00:00 Telephone Franklin Jani [facility] 1.2.840.114 350.1.13.10 4.2.7.2.686 [id number] [facility] 2019-10-18 08:25:31 2019-10-18 09:02:33 Office Visit Jani Chavira [facility] 1.2.840.114 350.1.13.10 4.2.7.2.686 [id number] [facility] 2019-09-21 08:32:42 2019-09-21 23:59:00 Outpatient R JANI CHAVIRA [facility] [id number] [facility]
[2024-03-08] MEDS ORDERED: LORazepam 2 MG/ML VIAL ONE (03:37)
[2024-03-08 04:07] LABS: Absolute Eosinophils 0.1 K/uL (0-0.5); Absolute Lymphocytes (CBC) 1.8 K/uL (0.7-4.9); Absolute Monocytes 0.6 K/uL (0.1-1.3); Absolute Neutrophil 8.5 K/uL (1.8-8.0); Basophils % 0.4 % (0-1.3); Eosinophils % 1.1 % (0-4.4); Hemoglobin 13.4 g/dL (12.0-15.0); MCHC 32.6 g/dL (32.0-36.0); MCV 85.8 fL (80-100); MPV 8.5 fL (7.6-11.3); Monocytes % 5.6 % (3.3-12.3); Neutrophils % 76.9 % (41.7-73.7); Platelets 320 thou/uL (152-406); RBC Red Blood Cell Count 4.77 M/uL (3.86-4.86); Red Cell Distribution Width 13.7 % (12.1-15.2)
[2024-03-08 04:18] LABS: ALT/SGPT 36 U/L (13-56); AST/SGOT 17 U/L (15-37); Albumin 3.7 g/dL (3.4-5.0); Alkaline Phosphatase 91 U/L (45-117); Anion Gap 11.7 mEq/L (5.0-15.0); BUN Blood Urea Nitrogen 15 mg/dL (7-18); Bicarbonate 24 mEq/L (21-32); Bilirubin Total 0.2 mg/dL (0.2-1.0); Globulin 3.8 g/dL (2.3-3.5); Glomerular Filtration Rate 87 ml/min (=/>90); Glucose Level 144 mg/dL (74-106); NT PRO-BNP 24 pg/mL (<125); Potassium 3.7 mEq/L (3.5-5.1); Protein, Total 7.5 g/dL (6.4-8.2); Sodium Level 136 mEq/L (136-145)
[2024-03-08 04:38] LABS: Bilirubin Direct < 0.2 mg/dL (0-0.2)
--- NOTE | 2024-03-08 05:08 | EDPHYS ---
Physician Documentation [facility] Name: Janis Baldwin Age: 63 yrs Sex: Female : 1960 Arrival Date: 03/08/2024 Time: 03:15 Bed 4 Private MD: ED Physician Umang Macias HPI: 03/08 03:49 This 63 yrs old Female presents to ER via Ambulatory with complaints of Anxiety, rt Shortness Of Breath. 03:49 Patient presents to the ED with shortness of breath starting at about 1:00. This rt occurred after patient got to an argument. Denies other acute complaints at this time, symptoms are moderate in severity, no other aggravating or alleviating factors.. Historical: - Allergies: 03:35 Morphine; ss 03:35 Augmentin; ss - PMHx: 03:35 SVT; ss 03:35 epilepsy; ss - Immunization history:: Client reports receiving the 1st dose of the Covid vaccine. - Infectious Disease History:: Denies. - Social history:: Smoking status: Patient denies any tobacco usage or history of. - Family history:: not pertinent. ROS: 03:49 Constitutional: Negative for fever, chills, and weight loss, Cardiovascular: Negative rt for chest pain, palpitations, and edema, Abdomen/GI: Negative for abdominal pain, nausea, vomiting, diarrhea, and constipation, MS/Extremity: Negative for injury and deformity, Skin: Negative for injury, rash, and discoloration, Neuro: Negative for headache, weakness, numbness, tingling, and seizure, 03:49 Respiratory: Positive for shortness of breath, Negative for cough, Exam: 03:49 Head/Face: Normocephalic, atraumatic. Chest/axilla: Normal chest wall appearance and rt motion. Nontender with no deformity. No lesions are appreciated. Cardiovascular: Regular rate and rhythm with a normal S1 and S2. No gallops, murmurs, or rubs. Normal PMI, no JVD. No pulse deficits. Respiratory: Lungs have equal breath sounds bilaterally, clear to auscultation and percussion. No rales, rhonchi or wheezes noted. No increased work of breathing, no retractions or nasal flaring. Abdomen/GI: Soft, non-tender, with normal bowel sounds. No distension or tympany. No guarding or rebound. No evidence of tenderness throughout. Skin: Warm, dry with normal turgor. Normal color with no rashes, no lesions, and no evidence of cellulitis. MS/ Extremity: Pulses equal, no cyanosis. Neurovascular intact. Full, normal range of motion. Neuro: Awake and alert, GCS 15, oriented to person, place, time, and situation. Cranial nerves II-XII grossly intact. Motor strength 5/5 in all extremities. Sensory grossly intact. Cerebellar exam normal. Normal gait. 03:49 Constitutional: The patient appears Hyperventilating 03:49 ECG was reviewed by the Attending Physician. Vital Signs: 03:30 BP 128 / 71; Pulse 123; Resp 26; Temp 98(TE); Pulse Ox 99% on R/A; Weight 69.85 kg; ss Height 5 ft. 5 in. ; Pain 0/10; 04:30 BP 98 / 67; Pulse 85; Resp 16; Pulse Ox 92% on R/A; km8 05:00 BP 114 / 74; Pulse 110; Resp 20 S; Pulse Ox 97% on R/A; km8 03:30 Body Mass Index 25.63 (69.85 kg, 165.1 cm) ss 03:30 Pain Scale: Adult ss [place] Coma Score: 03:40 Eye Response: spontaneous(4). Motor Response: obeys commands(6). Verbal Response: km8 oriented(5). Total: 15. MDM: 03:25 Patient medically screened. rt 05:08 Differential diagnosis: Anemia, PE, pneumonia, pneumothorax, CHF, stress response. Data rt reviewed: vital signs, nurses notes, lab test result(s), EKG, radiologic studies. Consideration of Admission/Observation Escalation of care including admission/observation considered. I considered the following discharge prescriptions or medication management in the emergency department Medications were administered in the Emergency Department. See MAR. Independent interpretation of the following test(s) in the Emergency Department X-Ray: My interpretation is No pneumonia seen on my interpretation of x-ray images. Test considered but Not performed: CT: D-dimer negative, CT angiogram not indicated. Care significantly affected by the following chronic conditions: SVT. Response to treatment: the patient's symptoms have markedly improved after treatment. 03/08 03:29 Order name: Basic Metabolic Panel; Complete Time: 04:45 rt 06/04 03:29 Order name: CBC with Diff; Complete Time: 04:45 rt 03/08 03:29 Order name: D-Dimer; Complete Time: 04:45 rt 04 03:29 Order name: LFT's; Complete Time: 04:45 rt 03/08 03:29 Order name: Magnesium; Complete Time: 04:45 rt 03/08 03:29 Order name: NT PRO-BNP; Complete Time: 04:45 rt 03/08 03:29 Order name: Troponin HS; Complete Time: 04:45 rt 03/08 03:29 Order name: XRAY Chest (1 view) rt 03/08 03:29 Order name: EKG; Complete Time: 03:29 rt 03/08 03:29 Order name: Cardiac monitoring; Complete Time: 03:40 rt 03/08 03:29 Order name: EKG - Nurse/Tech; Complete Time: 03:40 rt 03/08 03:29 Order name: IV Saline Lock; Complete Time: 03:40 rt 03/08 03:29 Order name: Labs collected and sent; Complete Time: 03:40 rt 03/08 03:29 Order name: O2 Per Protocol; Complete Time: 03:40 rt 03/08 03:29 Order name: O2 Sat Monitoring; Complete Time: 03:40 rt EC:49 Rate is 113 beats/min. Rhythm is regular, Sinus tachycardia with No ectopy. QRS [place] is rt Normal. [place] interval is normal. QRS interval is normal. QT interval is normal. No Q waves. T waves are Normal. No ST changes noted. Interpreted by me. Administered Medications: 03:40 Drug: Ativan IVP 2 mg IVP once Route: IVP; Site: right antecubital; km8 04:39 Follow up: Response: No adverse reaction; Anxiety decreased km8 Disposition Summary: 03/08/24 05:08 Discharge Ordered Notes: Location: Home rt Problem: new rt Symptoms: have improved rt Condition: Stable rt Diagnosis - Dyspnea rt Followup: rt - With: Private Physician - When: 2 - 3 days - Reason: Discharge Instructions: - Discharge Summary Sheet rt - Shortness of Breath, Adult rt Forms: - Medication Reconciliation Form rt - Antibiotic Education rt - Prescription Opioid Use rt - Patient Portal Instructions rt - Leadership Thank You Letter rt Signatures: [facility] Susan Fern[facility] RN RN ss Umang Macias MD MD rt Socorro Owens RN RN km8 Corrections: (The following items were deleted from the chart) 03: 03:29 BASIC METABOLIC PANEL+C.LAB.BRZ ordered. EDMS EDMS 03: 03:29 CBC+H.LAB.BRZ ordered. EDMS EDMS 03: 03:29 D-DIMER+COAG.LAB.BRZ ordered. EDMS EDMS 03: 03:29 HEPATIC FUNCTION+C.LAB.BRZ ordered. EDMS EDMS 03: 03:29 MAGNESIUM+C.LAB.BRZ ordered. EDMS EDMS 03: 03:29 PROBNP+C.LAB.BRZ ordered. EDMS EDMS 03: 03:29 Troponin High Sensitivity+C.LAB.BRZ ordered. EDMS EDMS
--- NOTE | 2024-03-08 05:08 | ER ---
Nurse's Notes [facility] Name: Janis Baldwin Age: 63 yrs Sex: Female : 1960 Arrival Date: 03/08/2024 Time: 03:15 Bed 4 Private MD: Diagnosis: Dyspnea Presentation: 03/08 03:30 Chief complaint: Patient states: shortness of breath and palpitations that began 1 hour ss ago after getting into an argument. Pt reports a hx of SVT, but reports this feels worse. Coronavirus screen: Client denies travel out of the [place] in the last 14 days. Ebola Screen: Patient denies exposure to infectious person. Patient denies travel to an Ebola-affected area in the 21 days before illness onset. Initial Sepsis Screen: Does the patient meet any 2 criteria? No. Patient's initial sepsis screen is negative. Does the patient have a suspected source of infection? No. Patient's initial sepsis screen is negative. Risk Assessment: Do you want to hurt yourself or someone else? Patient reports no desire to harm self or others. Onset of symptoms was March 08, 2024. 03:30 Method Of Arrival: Ambulatory ss 03:30 Acuity: KAE 2 ss Triage Assessment: 03:30 General: Appears distressed, uncomfortable, Behavior is anxious. Respiratory: Reports vc1 shortness of breath at rest Onset: The symptoms/episode began/occurred just prior to arrival, the patient has mild shortness of breath. Historical: - Allergies: 03:35 Morphine; ss 03:35 Augmentin; ss - PMHx: 03:35 SVT; ss 03:35 epilepsy; ss - Immunization history:: Client reports receiving the 1st dose of the Covid vaccine. - Infectious Disease History:: Denies. - Social history:: Smoking status: Patient denies any tobacco usage or history of. - Family history:: not pertinent. Screenin:40 [facility] ED Fall Risk Assessment (Adult) History of falling in the last 3 months, km8 including since admission No falls in past 3 months (0 pts) Confusion or Disorientation No (0 pts) Intoxicated or Sedated No (0 pts) Impaired Gait No (0 pts) Mobility Assist Device Used No (0 pt) Altered Elimination No (0 pt) Score/Fall Risk Level 0 - 2 = Low Risk Oriented to surroundings, Maintained a safe environment, Educated pt \T\ family on fall prevention, incl call for assistance when getting out of bed, Assessed \T\ reinforced patient's understanding of fall precautions. Abuse screen: Denies threats or abuse. Denies injuries from another. Nutritional screening: No deficits noted. Tuberculosis screening: No symptoms or risk factors identified. Assessment: 03:40 General: Appears uncomfortable, Behavior is anxious, restless. Pain: Denies pain. km8 Neuro: Level of Consciousness is awake, alert, obeys commands, Oriented to person, place, time, situation. Cardiovascular: Reports palpitations, Denies chest pain, Patient's skin is warm and dry. Rhythm is sinus tachycardia. Respiratory: Airway is patent Respiratory effort is even, labored, Respiratory pattern is hyperventilation Breath sounds are clear bilaterally. GI: No signs and/or symptoms were reported involving the gastrointestinal system. : No signs and/or symptoms were reported regarding the genitourinary system. EENT: No signs and/or symptoms were reported regarding the EENT system. Derm: Skin is intact, is healthy with good turgor, Skin is dry, Skin is pink, warm \T\ dry. normal, Skin temperature is warm. Musculoskeletal: No signs and/or symptoms reported regarding the musculoskeletal system. Range of motion: intact in all extremities. 04:38 Reassessment: Patient appears in no apparent distress at this time. Patient and/or km8 family updated on plan of care and expected duration. Pain level reassessed. Patient is alert, oriented x 3, equal unlabored respirations, skin warm/dry/pink. Patient states feeling better. Patient states symptoms have improved. Cardiovascular: Denies palpitations, shortness of breath. Respiratory: Airway is patent Respiratory effort is even, unlabored, Respiratory pattern is regular, symmetrical. 05:06 Reassessment: Patient appears in no apparent distress at this time. No changes from vc1 previously documented assessment. Patient and/or family updated on plan of care and expected duration. Pain level reassessed. Patient is alert, oriented x 3, equal unlabored respirations, skin warm/dry/pink. Vital Signs: 03:30 BP 128 / 71; Pulse 123; Resp 26; Temp 98(TE); Pulse Ox 99% on R/A; Weight 69.85 kg; ss Height 5 ft. 5 in. ; Pain 0/10; 04:30 BP 98 / 67; Pulse 85; Resp 16; Pulse Ox 92% on R/A; km8 05:00 BP 114 / 74; Pulse 110; Resp 20 S; Pulse Ox 97% on R/A; km8 03:30 Body Mass Index 25.63 (69.85 kg, 165.1 cm) ss 03:30 Pain Scale: Adult ss [place] Coma Score: 03:40 Eye Response: spontaneous(4). Motor Response: obeys commands(6). Verbal Response: km8 oriented(5). Total: 15. ED Course: 03:22 Patient arrived in ED. ss 03:23 Umang Macias MD is Attending Physician. rt 03:35 Triage completed. ss 03:35 Arm band placed on right wrist. ss 03:40 Socorro Owens, [place] is Primary Nurse. km8 03:40 Patient has correct armband on for positive identification. Placed in gown. Bed in low km8 position. Call light in reach. Side rails up X2. Provided Education on: call light use. Client placed on continuous cardiac and pulse oximetry monitoring. NIBP monitoring applied. ekg monitor tech on. Pulse ox on. Warm blanket given. 03:40 Basic Metabolic Panel Sent. km8 03:40 CBC with Diff Sent. km8 03:40 D-Dimer Sent. km8 03:40 LFT's Sent. km8 03:40 Magnesium Sent. km8 03:40 NT PRO-BNP Sent. km8 03:40 Troponin HS Sent. km8 03:40 Inserted saline lock: 20 gauge in right antecubital area, using aseptic technique. km8 Blood collected. 03:40 Initial lab(s) drawn, by me, sent to lab. EKG done, by ED staff, reviewed by Umang Macias MD. 03:46 XRAY Chest (1 view) In Process Unspecified. EDMS 05:06 No provider procedures requiring assistance completed. vc1 05:23 IV discontinued, intact, bleeding controlled, No redness/swelling at site. Pressure km8 dressing applied. Administered Medications: 03:40 Drug: Ativan IVP 2 mg IVP once Route: IVP; Site: right antecubital; km8 04:39 Follow up: Response: No adverse reaction; Anxiety decreased km8 Medication: 03:40 VIS not applicable for this client. km8 Outcome: 05:08 Discharge ordered by . rt 05:23 Discharged to home via wheelchair, with significant other, km8 05:23 Condition: good 05:23 Discharge instructions given to patient, Instructed on discharge instructions, follow up and referral plans. Demonstrated understanding of instructions, follow-up care, 05:23 Patient left the ED. km8 Signatures: Dispatcher [employer] EDMS Susan Caruso RN RN ss Kae Herrera RN RN vc1 Umang Macias MD MD rt Socorro Owens RN RN km8 Corrections: (The following items were deleted from the chart) 04:38 03:40 Cardiovascular: Denies chest pain, Patient's skin is warm and dry. Rhythm is km8 sinus tachycardia km8
[2024-03-08 05:38] VITALS: BP 114/74; TEMP 98; O2SAT 97
--- NOTE | 2024-03-08 10:58 | RAD REPORT ---
EXAM DESCRIPTION: RAD - Chest Single View - 03/08/2024 3:44 am CLINICAL HISTORY: DYSPNEA COMPARISON: None TECHNIQUE: Single AP view of the chest. FINDINGS: Lung volumes adequate. Cardiac silhouette is normal in size. No pneumothorax. No large pleural effusion. No focal consolidation. No acute bony finding. IMPRESSION: No evidence of acute cardiopulmonary disease. Electronically signed by: Ann Marie Daley MD 03/08/2024 04:54 AM CDT RP Z9 Due to temporary technical issues with the PACS/Fluency reporting system, reports are being signed by the in house radiologist without review as a courtesy to ensure prompt reporting. The interpreting r adiologist is fully responsible for the content of the report.
--- NOTE | 2024-03-08 13:17 | EKG ---
Test Date: 2024-03-08 Test Time: 03:36:25 Systems Analyst Engineer: [employer] MEASUREMENT RESULTS: Intervals: Rate: 113 VA: 138 QRSD: 76 QT: 328 QTc: 449 [place]: P: 49 VA: 138 QRS: -7 T: 29 INTERPRETIVE STATEMENTS: Sinus tachycardia Otherwise normal ECG Compared to ECG 01/17/2017 22:05:42 Sinus rhythm no longer present Electronically Signed On 03-08-24 13:16:09 CDT by Russ Valdovinos
== END 2024-03-08 05:23 | disposition home or self-care (01) ==
LOC: ER 03:15
DX: R06.00 Dyspnea, unspecified (principal)
CPT/HCPCS: 36415; 71045; 80048; 80076; 83735; 83880; 84484; 85025; 85379; 93005; 96374; 99285